=== PATIENT | female | born 1970 | race Caucasian/White ===

== ENCOUNTER 2021-01-17 11:19 | Outpatient (CLI) | payer OTHER ==
[2021-01-17 18:13] LABS: HGB - HEMOGLOBIN 13.9 g/dL (12.0-16.0); MEAN CORPUSCULAR HEMOGLOBIN 31.4 pg (27.0-31.0); MEAN CORPUSCULAR HGB CONC 32.3 g/dL (32.0-36.0); MEAN CORPUSCULAR VOLUME 97.1 fL (81.0-99.0); MEAN PLATELET VOLUME 11.4 fL (7.9-10.8); RED BLOOD COUNT 4.43 10^6/uL (4.20-5.40); RED CELL DISTRIBUTION WIDTH 12.8 % (12.0-15.0); WHITE BLOOD COUNT 6.9 x10^3/uL (4.8-10.8)
[2021-01-17 18:32] LABS: ALBUMIN 4.4 g/dL (3.2-5.5); ALBUMIN/GLOBULIN RATIO 1.7 (1.0-2.2); ALKALINE PHOSPHATASE 54 IU/L (42-121); ALT ALANINE AMINOTRANSFERASE 15 IU/L (10-60); AST ASPARTATE AMINOTRANSFERASE 28 IU/L (10-42); BUN - BLOOD UREA NITROGEN 16 mg/dL (6-20); CARBON DIOXIDE - CO2 30 mmol/L (21-32); CHLORIDE 99 mmol/L (101-111); CHOL/HDL RATIO 3.5 (<4.4); CHOLESTEROL 233 mg/dL; CREATININE 0.9 mg/dL (0.4-1.0); GFR - MDRD 66 (>89); GLUCOSE 86 mg/dL (70-100); HDL CHOLESTEROL 67 mg/dL; LDL CHOLESTEROL,CALCULATED 118 mg/dL; LDL/HDL RATIO 1.8 (<4.4); POTASSIUM 4.9 mmol/L (3.5-5.0); SODIUM 138 mmol/L (135-145); TRIGLYCERIDES 239 mg/dL; VLDL CHOLESTEROL 48 mg/dL
[2021-01-17 18:41] LABS: THYROID STIMULATING HORMONE 1.05 uIU/mL (0.34-5.60)
[2021-01-17 20:21] LABS: ESTIMATED AVERAGE GLUCOSE 105 mg/dL (70-100); HEMOGLOBIN A1c% 5.3 % (4.27-6.07)
== END 2021-01-17 11:20 | disposition home or self-care (01) ==
LOC: LAB.N 11:19
DX: Z76.89 Persons encountering health services in other specified circumstances (principal); R53.83 Other fatigue
CPT/HCPCS: 36415; 80053; 80061; 83036; 83721; 84443; 85027

== ENCOUNTER 2021-01-17 12:44 | Outpatient (CLI) | payer OTHER ==
--- NOTE | 2021-01-17 15:27 | XRAY Report ---
PROCEDURE: Knee 2 View BILAT INDICATIONS: CHRONIC KNEE PAIN TECHNIQUE: 2 views of the left and right knee(s) were acquired. COMPARISON: None. FINDINGS: No fracture On the right, scattered degenerative spurring and sclerosis.Mild medial joint space narrowing. No mack nt effusion. On the left, scattered degenerative spurring and sclerosis. Mild medial joint space narrowing. No mack nt effusion IMPRESSION: Mild bilateral knee joint degeneration. Reviewed by: Porfirio Smith MD on 01/17/2021 3:26 PM PST Approved by: Porfirio Smith MD on 01/17/2021 3:26 PM PST Station ID: [id number]
== END 2021-01-17 23:59 | disposition home or self-care (01) ==
LOC: DI.N 12:44
PROVIDERS: ATTEND Family Medicine
DX: M17.0 Bilateral primary osteoarthritis of knee (principal)

== ENCOUNTER 2021-02-28 07:55 | Outpatient (CLI) | payer OTHER ==
--- NOTE | 2021-02-28 12:56 | XRAY Report ---
PROCEDURE: Shoulder 3 View LT INDICATIONS: SPRAIN OF L SHOULDER TECHNIQUE: 3 views of the shoulder were acquired. COMPARISON: None. FINDINGS: Bones: No acute fractures or dislocations. No suspicious bony lesions. Visualized ribs appear inta ct. Mild degenerative changes of the left acromioclavicular joint. Soft tissues: No suspicious soft tissue calcifications. Soft tissue calcifications project over the superolateral left humeral head compatible with sequela of chronic rotator cuff tendinopathy. IMPRESSION: Left shoulder without acute fracture or dislocation. Mild degenerative changes of the le ft acromioclavicular joint. Findings suggestive of sequela of chronic calcific rotator cuff tendinopa thy. Reviewed by: Armando Trent MD on 02/28/2021 12:28 PM PST Approved by: Armando Trent MD on 02/28/2021 12:28 PM PST Station ID: [id number]
== END 2021-02-28 23:59 | disposition home or self-care (01) ==
LOC: DI.N 07:55
PROVIDERS: ATTEND Nurse Practitioner
DX: M19.012 Primary osteoarthritis, left shoulder (principal)

== ENCOUNTER 2021-03-27 22:36 | Outpatient (CLI) | payer OTHER | END 2021-03-27 22:37 | disposition critical access hospital (66) | LOC: EMS 22:36 | DX: R10.9 Unspecified abdominal pain (principal) | CPT/HCPCS: A0425; A0427 ==

== ENCOUNTER 2021-03-27 22:54 | Emergency (ER) | payer OTHER ==
--- NOTE | 2021-03-27 23:11 | ED Physician Documentation ---
History of Present Illness - Stated complaint Stated Complaint: ABD PAIN - Chief complaint Chief Complaint: Abd Pain - History obtained from History obtained from: Patient - Additonal information Additional information: 51yF with pmh anxiety, depression, tbi, p/w epigastric abdominal pain sudden onset starting this evening. patient states she was given cocaine as a gift and had snorted some and drank "a lot" of wine and seltzer, knitted a blanket for a while then went to bed. she got up again and had some cheese and crackers then experienced sudden onset epigastric pain, 10/10, nonradiating, a/w diaphoresis. she was still actively drinking at this time. called EMS and "had to crawl to the door to let them in". Pain was worse with standing up straight. a/w bloating sensation. aching quality. denies nausea. epigastric pain now improved to 5 or 6 out of 10. Review of Systems Ten Systems: 10 systems reviewed and negative Constitutional: denies: Fever, Chills Cardiac: denies: Chest pain / pressure Respiratory: denies: Dyspnea, Cough GI: reports: Abdominal Pain. denies: Nausea, Vomiting : denies: Dysuria Musculoskeletal: denies: Back pain PD PAST MEDICAL HISTORY - Present Medications Home Medications: Ambulatory Orders Medication Instructions Recorded Confirmed Citalopram [CeleXA] 10 mg PO DAILY 03/28/21 03/28/21 Ondansetron Odt [Zofran Odt] 4 mg PO Q4HR 03/28/21 03/28/21 - Allergies Allergies/Adverse Reactions: Allergies Allergy/AdvReac Type Severity Reaction Status Date / Time No Known Drug Allergies Allergy Verified 03/27/21 23:01 PD ED PE NORMAL - Vitals Vital signs reviewed: Yes - General General: Alert and oriented X 3, No acute distress, Well developed/nourished, Other (clinically intoxicated) - HEENT HEENT: Atraumatic, PERRL, EOMI - Neck Neck: Supple, no meningeal sign - Cardiac Cardiac: RRR - Respiratory Respiratory: No respiratory distress, Clear bilaterally - Abdomen Abdomen: Non tender, Non distended, Other (discomfort in epigastrium to palpation. negative allen sign) - Back Back: No CVA TTP - Derm Derm: Normal color, Warm and dry - Extremities Extremities: No deformity - Neuro Neuro: Alert and oriented X 3, No motor deficit, No sensory deficit, Normal speech, Other (clinically intoxicated) - Psych Psych: Other (clinically intoxicated) Results - Vitals Vitals: Vital Signs - 24 hr 03/27/21 03/27/21 03/27/21 22:59 23:11 23:21 Temperature 35.8 C L Heart Rate 85 83 Respiratory 17 16 20 Rate Blood Pressure 128/102 H 121/80 O2 Saturation 97 97 03/28/21 03/28/21 03/28/21 00:10 00:21 01:16 Temperature Heart Rate 93 97 100 Respiratory 18 20 17 Rate Blood Pressure 139/98 H O2 Saturation 93 99 96 03/28/21 03/28/21 03/28/21 01:40 02:52 03:22 Temperature Heart Rate 95 92 97 Respiratory 15 13 17 Rate Blood Pressure 132/90 H O2 Saturation 95 95 95 03/28/21 03/28/21 04:55 05:00 Temperature Heart Rate 110 H 107 H Respiratory 20 16 Rate Blood Pressure 147/96 H O2 Saturation 97 99 Oxygen O2 Source Room air - EKG (time done) 2307 Rate: Rate (enter#) (83) Rhythm: NSR [place]: Normal Intervals: Normal NC QRS: Normal Ischemia: Normal ST segments - Labs Labs: Laboratory Tests 03/27/21 03/27/21 03/27/21 23:49 23:49 23:49 WBC 15.3 H RBC 4.43 Hgb 14.0 Hct 41.8 MCV 94.4 MCH 31.6 H MCHC 33.5 RDW 12.7 Plt Count 217 MPV 10.5 Neut # (Auto) 12.0 H Lymph # (Auto) 2.2 [place] # (Auto) 0.8 Eos # (Auto) 0.2 Baso # (Auto) 0.1 Absolute Nucleated RBC 0.00 Nucleated RBC % 0.0 Sodium 141 Potassium 3.7 Chloride 105 Carbon Dioxide 23 Anion Gap 13.0 BUN 12 Creatinine 1.0 Estimated GFR (MDRD) 58 L Glucose 88 Calcium 8.7 Total Bilirubin 0.4 AST 162 H ALT 36 Alkaline Phosphatase 69 Troponin I High Sens 3.4 Total Protein 6.7 Albumin 3.9 Globulin 2.8 Albumin/Globulin Ratio 1.4 Lipase 121 H Salicylates < 6.0 Urine Opiates Screen Ur Oxycodone Screen Urine Methadone Screen Ur Propoxyphene Screen Acetaminophen < 10 L Ur Barbiturates Screen Ur Tricyclics Screen Ur Phencyclidine Scrn Ur Amphetamine Screen U Methamphetamines Scrn U Benzodiazepines Scrn Urine Cocaine Screen U Cannabinoids Screen Ethyl Alcohol 153.1 03/28/21 00:47 WBC RBC Hgb Hct MCV MCH MCHC RDW Plt Count MPV Neut # (Auto) Lymph # (Auto) [place] # (Auto) Eos # (Auto) Baso # (Auto) Absolute Nucleated RBC Nucleated RBC % Sodium Potassium Chloride Carbon Dioxide Anion Gap BUN Creatinine Estimated GFR (MDRD) Glucose Calcium Total Bilirubin AST ALT Alkaline Phosphatase Troponin I High Sens Total Protein Albumin Globulin Albumin/Globulin Ratio Lipase Salicylates Urine Opiates Screen NEGATIVE Ur Oxycodone Screen NEGATIVE Urine Methadone Screen NEGATIVE Ur Propoxyphene Screen NEGATIVE Acetaminophen Ur Barbiturates Screen NEGATIVE Ur Tricyclics Screen NEGATIVE Ur Phencyclidine Scrn NEGATIVE Ur Amphetamine Screen NEGATIVE U Methamphetamines Scrn NEGATIVE U Benzodiazepines Scrn NEGATIVE Urine Cocaine Screen POSITIVE H U Cannabinoids Screen NEGATIVE Ethyl Alcohol PD MEDICAL DECISION MAKING - ED course ED course: 51yF p/w acute alcohol and cocaine intoxication and epigastric pain sudden onset this evening while actively drinking and eating cheese/crackers. declining pain meds at this time, stating pain is resolving on its own. ekg looks benign and patient is well appearing. will provide IVF, pepcid, reevaluate. Pain resolved, patient tolerating PO, clinically sober at this time. return precautions given. plan to f/u with pmd. Departure - Departure Disposition: 01 Home, Self Care Clinical Impression: Abdominal pain, Cocaine abuse, Alcohol abuse Condition: Good Instructions: Abdominal Pain, ED Drug Abuse General Comments: You were seen in the ED for evaluation of abdominal pain. Your labwork and CT uncovered no emergent findings. You do have an increased white blood cell count on bloodwork, which is a nonspecific finding. Return to the ED if you have fever with temp >100.4. Please follow up with your primary doctor for further evaluation. Return to the ED if you have new or worsening symptoms or other concerns.
[2021-03-27] MEDS: SODIUM CHLORIDE 0.9% 1,000 ML IV STA (23:16)
[2021-03-27] MEDS: FAMOTIDINE 20 MG/2 ML VIAL IVP STA (23:20)
--- NOTE | 2021-03-27 23:39 | XRAY Report ---
PROCEDURE: Chest 1 View X-Ray INDICATIONS: epigastric pain TECHNIQUE: One view of the chest was acquired. COMPARISON: None FINDINGS: Surgical changes and devices: None. Lungs and pleura: No pleural effusions or pneumothorax. Lungs are clear. Mediastinum: Mediastinal contours appear normal. Heart size is normal. Bones and chest wall: No suspicious bony lesions. Overlying soft tissues appear unremarkable. IMPRESSION: No acute pulmonary process. Reviewed by: Juliana Llamas MD on 03/27/2021 11:38 PM [facility] Approved by: Juliana Llamas MD on 03/27/2021 11:38 PM [facility] Station ID: [id number]
[2021-03-27 23:54] LABS: BASOPHILS # (AUTO) 0.1 10^3/uL (0.0-0.1); BASOPHILS % (AUTO) 0.6 %; EOSINOPHILS # (AUTO) 0.2 10^3/uL (0.0-0.7); HCT - HEMATOCRIT 41.8 % (37.0-47.0); LYMPHOCYTES # (AUTO) 2.2 10^3/uL (1.5-3.5); LYMPHOCYTES % (AUTO) 14.4 %; MEAN CORPUSCULAR HEMOGLOBIN 31.6 pg (27.0-31.0); MEAN CORPUSCULAR HGB CONC 33.5 g/dL (32.0-36.0); MEAN CORPUSCULAR VOLUME 94.4 fL (81.0-99.0); MEAN PLATELET VOLUME 10.5 fL (7.9-10.8); MONOCYTES # (AUTO) 0.8 10^3/uL (0.0-1.0); MONOCYTES % (AUTO) 5.1 %; NEUTROPHILS % (AUTO) 78.4 %; PLT - PLATELET COUNT 217 10^3/uL (130-450); RED BLOOD COUNT 4.43 10^6/uL (4.20-5.40); RED CELL DISTRIBUTION WIDTH 12.7 % (12.0-15.0); WHITE BLOOD COUNT 15.3 x10^3/uL (4.8-10.8)
[2021-03-28 00:14] LABS: ACETAMINOPHEN < 10 ug/mL (10-30); ALBUMIN 3.9 g/dL (3.2-5.5); ALBUMIN/GLOBULIN RATIO 1.4 (1.0-2.2); ALKALINE PHOSPHATASE 69 IU/L (42-121); ALT ALANINE AMINOTRANSFERASE 36 IU/L (10-60); AST ASPARTATE AMINOTRANSFERASE 162 IU/L (10-42); BILIRUBIN,TOTAL 0.4 mg/dL (0.2-1.0); BUN - BLOOD UREA NITROGEN 12 mg/dL (6-20); CALCIUM 8.7 mg/dL (8.5-10.3); CARBON DIOXIDE - CO2 23 mmol/L (21-32); CHLORIDE 105 mmol/L (101-111); ETOH - ETHANOL 153.1 mg/dL; GFR - MDRD 58 (>89); GLUCOSE 88 mg/dL (70-100); LIPASE 121 U/L (22-51); POTASSIUM 3.7 mmol/L (3.5-5.0); SALICYLATE < 6.0 mg/dL; SODIUM 141 mmol/L (135-145); TOTAL PROTEIN 6.7 g/dL (6.7-8.2)
[2021-03-28] MEDS: SODIUM CHLORIDE 0.9% 500 ML IV STA (00:25)
[2021-03-28] MEDS: LIDOCAINE VISCOUS 2% 15 ML UDC MM STA (00:32)
[2021-03-28] MEDS: diphenhydrAMINE ELIXIR 25 MG/10 ML UDC PO STA (00:32)
[2021-03-28] MEDS: MAGIC MOUTHWASH 120 ML BOTTLE PO STA (00:32)
[2021-03-28] MEDS: MAG HYDROX/AL HYDROX/SIMETH 30 ML UDC PO STA (00:32)
[2021-03-28] MEDS ORDERED: IOVERSOL 320 100 ML VIAL IVP ONE (00:37)
[2021-03-28 00:49] LABS: MUDS CUTOFF CONCENTRATIONS CUTOFF CONC BELOW:
[2021-03-28 00:56] LABS: AMPHETAMINE SCREEN,URINE NEGATIVE (NEGATIVE); BARBITURATE SCREEN,UR NEGATIVE (NEGATIVE); BENZODIAZEPINES SCREEN, URINE NEGATIVE (NEGATIVE); COCAINE SCREEN URINE POSITIVE (NEGATIVE); METHADONE SCREEN, URINE NEGATIVE (NEGATIVE); METHAMPHETAMINES SCREEN, URINE NEGATIVE (NEGATIVE); OPIATE SCREEN, URINE NEGATIVE (NEGATIVE); OXYCODONE SCREEN, URINE NEGATIVE (NEGATIVE); PROPOXYPHENE SCREEN, URINE NEGATIVE (NEGATIVE); THC CANNABINOID SCREEN, URINE NEGATIVE (NEGATIVE); TRICYCLIC ANTIDEPRESSANT,URINE NEGATIVE (NEGATIVE)
[2021-03-28] MEDS: IOVERSOL 320 100 ML VIAL IVP ONE (01:19)
--- NOTE | 2021-03-28 01:41 | CT Report ---
PROCEDURE: Abdomen/Pelvis W INDICATIONS: epigastric pain CONTRAST: IV CONTRAST: Optiray 320 ml: 100 PO CONTRAST: *NO PO CONTRAST TECHNIQUE: After the administration of IV contrast, 5 mm thick sections acquired from the diaphragms to the symp hysis. 5 mm thick coronal and sagittal reformats were acquired. For radiation dose reduction, the f ollowing was used: automated exposure control, adjustment of mA and/or kV according to patient size. COMPARISON: None. FINDINGS: Image quality: Excellent. ABDOMEN: Lung bases: Lung bases are clear. Heart size is normal. Solid organs: Liver and spleen are normal in size and enhancement. Hepatic steatosis is present. Ga llbladder is unremarkable Biliary system is non dilated. Pancreas enhances normally. No adrenal no dules. Kidneys demonstrate normal size and enhancement, without hydronephrosis. Peritoneum and bowel: Bowel loops demonstrate normal wall thickness and caliber. The appendix is unr emarkable. No free fluid or air. Mild scattered stool. Nodes and vessels: No retroperitoneal or mesenteric adenopathy by size criteria. Aorta and inferior vena cava are normal in size. Miscellaneous: Fat-containing ventral hernia is present. PELVIS: Genitourinary: Bladder wall thickness is normal. Miscellaneous: No inguinal hernias or adenopathy. Bones: No suspicious bony lesions. No vertebral body compression fractures. IMPRESSION: Mild scattered stool without obstruction. No visualized acute intra-abdominal or pelvic process. Reviewed by: Juliana Llamas MD on 03/28/2021 1:39 AM PST Approved by: Juliana Llamas MD on 03/28/2021 1:39 AM PST Station ID: [id number]
[2021-03-28 05:02] VITALS: BP 147/96
== END 2021-03-28 06:16 | disposition home or self-care (01) ==
LOC: EDUNIT# → ED 22:54
DX: R10.13 Epigastric pain (principal); F10.129 Alcohol abuse with intoxication, unspecified; F14.129 Cocaine abuse with intoxication, unspecified
CPT/HCPCS: 36415; 71045; 74177; 80053; 80306; 80307; 80320; 80329; 83690; 84484; 85025; 93005; 96374; 99283; 99284; A9270; Q9967

== ENCOUNTER 2022-09-25 09:46 | Outpatient (CLI) | payer OTHER ==
--- NOTE | 2022-09-25 18:21 | CT Report ---
PROCEDURE: Low Dose Lung Cancer Screen INDICATIONS: TOBACCO USE TECHNIQUE: A CT scan of the chest was performed. Intravenous contrast media was not administered. Images were re corded and evaluated at appropriate window settings. Reformats: axial MIP of the chest, coronal and s agittal. For radiation dose reduction, the following was used: automated exposure control, adjustment of mA and/or kV according to patient size. COMPARISON: Chest radiograph dated 03/27/2021 FINDINGS: Image quality: Diagnostic. Prior cancer history: Unknown Lungs and pleura: No pleural effusions. No pneumothorax. There is a 5 mm posterior lateral right mid dle lobe nodule with suggestion of coarse internal calcifications seen on image 66/series 3. This may represent a pulmonary hamartoma. Mediastinum: Heart size is normal. No pericardial effusion. No large vessel abnormality. No mediastin al adenopathy by size criteria. Minimal atherosclerotic calcifications of the coronary arteries. Chest wall and lower neck: Thyroid is unremarkable. No axillary or supraclavicular adenopathy by size . Bones: No aggressive osseous abnormality. Upper Abdomen: Unremarkable. IMPRESSION: There is a 5 mm right middle lobe nodule with suggestion of coarse, punctate internal art cifications likely representing a pulmonary hamartoma. Otherwise, no acute cardiopulmonary abnormalit ies identified in the chest. Lung RAD: 2 - Benign. Recommendation: Continue annual screening in 12 Months with LDCT Non-Lung Significant Findings: None. Reviewed by: Armando Trent MD on 09/25/2022 6:20 PM PDT Approved by: Armando Trent MD on 09/25/2022 6:20 PM PDT Station ID: [id number]
== END 2022-09-25 09:47 | disposition home or self-care (01) ==
LOC: DI 09:46
PROVIDERS: ATTEND Registered Nurse
DX: Z12.2 Encounter for screening for malignant neoplasm of respiratory organs (principal); R91.8 Other nonspecific abnormal finding of lung field; Z72.0 Tobacco use

== ENCOUNTER 2023-08-19 21:38 | Outpatient (CLI) | payer OTHER | END 2023-08-19 23:59 | disposition left against medical advice (07) | LOC: EMS 21:38 | DX: R10.84 Generalized abdominal pain (principal); R19.7 Diarrhea, unspecified; R11.0 Nausea ==

== ENCOUNTER 2023-09-06 11:06 | Outpatient (CLI) | payer OTHER ==
--- NOTE | 2023-09-06 17:05 | XRAY Report ---
PROCEDURE: Lumbar Spine 4V INDICATIONS: LOW BACK PAIN, UNSPECIFIED TECHNIQUE: 3 views of the lumbar spine were acquired. COMPARISON: None. FINDINGS: Surgical change: None. Bones: 5 [id number] vertebrae are present. There is trace multilevel retrolisthesis. Moderate t o severe disc and foraminal narrowing are present L5-S1. No vertebral body compression fractures. No suspicious bony lesions. Soft tissues: Overlying bowel gas pattern is normal. No suspicious soft tissue calcifications. IMPRESSION: Degenerative changes most severe at L5-S1. Reviewed by: Juliana Llamas MD on 09/06/2023 5:03 PM PDT Approved by: Juliana Llamas MD on 09/06/2023 5:03 PM PDT Station ID: [id number]
== END 2023-09-06 23:59 | disposition home or self-care (01) ==
LOC: DI.N 11:06
PROVIDERS: ATTEND Physician Assistant Medical
DX: M47.817 Spondylosis without myelopathy or radiculopathy, lumbosacral region (principal)

== ENCOUNTER 2023-10-02 13:10 | Outpatient (CLI) | payer OTHER ==
--- NOTE | 2023-10-02 14:56 | CT Report ---
PROCEDURE: Lung Cancer Screen INDICATIONS: SCREENING FOR LUNG CA TECHNIQUE: A CT scan of the chest was performed. Intravenous contrast media was not administered. Images were re corded and evaluated at appropriate window settings. Reformats: axial MIP of the chest, coronal and s agittal. For radiation dose reduction, the following was used: automated exposure control, adjustment of mA and/or kV according to patient size. COMPARISON: Prior similar CT 09/25/2022 reviewed. FINDINGS: Image quality: Excellent. Prior cancer history: Not stated Lungs and pleura: No pleural effusions. No pneumothorax. No suspicious pulmonary nodules which requi re follow up. There is a stable 5 mm lateral nodule right upper lobe seen on CT series 4 image 57. Th is was present on the prior CT from 1 year ago on series 3 image 66. Mediastinum: Heart size is normal. No pericardial effusion. No large vessel abnormality. No mediastin al adenopathy by size criteria. Chest wall and lower neck: Thyroid is unremarkable. No axillary or supraclavicular adenopathy by size . Bones: No aggressive osseous abnormality. Upper Abdomen: Unremarkable. IMPRESSION: Stable 5 mm nodule right upper lobe inferiorly, laterally. Considered likely benign by ap pearance and size. Lung RAD: Category 2 Recommendation: Follow-up noncontrast screening CT for early detection of lung carcinoma recommended in 1 year. Reviewed by: Lance Cotton MD on 10/02/2023 2:54 PM PDT Approved by: Lance Cotton MD on 10/02/2023 2:54 PM PDT Station ID: [id number]
== END 2023-10-02 13:11 | disposition home or self-care (01) ==
LOC: DI 13:10
PROVIDERS: ATTEND Registered Nurse
DX: Z12.2 Encounter for screening for malignant neoplasm of respiratory organs (principal); R91.1 Solitary pulmonary nodule

== ENCOUNTER 2023-10-23 16:06 | Outpatient (CLI) | payer OTHER ==
--- NOTE | 2023-10-24 13:58 | MRI Report ---
PROCEDURE: Lumbar Spine WO INDICATIONS: LOW BACK PAIN TECHNIQUE: Noncontrast sagittal T1 spin echo and T2 fast echo, sagittal STIR, axial T1 and T2 fast spin echo thr ough the lumbar spine. In cases with scoliosis, additional coronal T2 fast spin echo may be performe d. COMPARISON: Correlation is made with prior abdomen and pelvis CT, 03/28/2021. FINDINGS: Image quality: Motion artifact is noted. Alignment and Curvature: There is normal bony alignment. Bone Marrow: Marrow is of normal overall signal. No acute vertebral body compression fractures. Spinal Cord: Conus medullaris terminates at the L1 level. Visualized cord demonstrates normal signa l and size. Paraspinous Soft Tissues: No paravertebral masses. T12-L1: Mild to moderate loss of disc height and disc signal can be seen. No neural foraminal or francia tral canal narrowing can be seen. L1-L2: There is mild to moderate loss of disc height and disc signal seen. Mild disc bulge is see n. No neural foraminal narrowing or central canal narrowing can be seen. L2-L3: Normal in appearance. L3-L4: Normal in appearance. L4-L5: Mild loss of disc height and disc signal are seen. Mild disc bulge is seen, with a central/r ight disc protrusion. Mild facet hypertrophy is seen. Associated hypertrophy of the ligamentum flavu m can be seen. There is at least moderate bilateral neuroforaminal narrowing seen, left worse than ri ght. Moderate central canal narrowing is seen. L5-S1: At least moderate loss of disc height and disc signal can be seen. Reactive marrow endplate changes are seen, which demonstrate mixed signal and are attributed to a combination of edema and fat ty metaplasia (Modic type I and Modic type II changes). Moderate disc bulge is seen at this level. There is a central/right disc osteophyte protrusion. There is mild to moderate right-sided and at le ast moderate left-sided facet hypertrophy. Moderate to severe bilateral neural foraminal narrowing ca n be seen, with associated compression upon the exiting nerve roots. Mild central canal narrowing is seen. IMPRESSION: Focal lower lumbar spine degenerative changes are seen. Reviewed by: Dusty Deleon MD on 10/24/2023 12:57 PM [facility] Approved by: Dusty Deleon MD on 10/24/2023 12:57 PM [id number] Station ID: [id number]
== END 2023-10-23 16:07 | disposition home or self-care (01) ==
LOC: DI 16:06
PROVIDERS: ATTEND Registered Nurse
DX: M51.26 Other intervertebral disc displacement, lumbar region (principal); M51.36 Other intervertebral disc degeneration, lumbar region; M48.061 Spinal stenosis, lumbar region without neurogenic claudication; M47.816 Spondylosis without myelopathy or radiculopathy, lumbar region; M51.37 Other intervertebral disc degeneration, lumbosacral region; M48.07 Spinal stenosis, lumbosacral region; M47.817 Spondylosis without myelopathy or radiculopathy, lumbosacral region